=== PATIENT | female | born 1990 | race Caucasian/White ===

== ENCOUNTER 2017-02-22 08:39 | Outpatient (CLI) | payer BC, MEDICAID ==
[2017-02-22 14:08] LABS: BASOPHILS % (AUTO) 0.4 %; EOSINOPHILS # (AUTO) 0.2 10^3/uL (0.0-0.7); EOSINOPHILS % (AUTO) 4.1 %; HCT - HEMATOCRIT 38.2 % (37.0-47.0); HGB - HEMOGLOBIN 13.1 g/dL (12.0-16.0); LYMPHOCYTES # (AUTO) 1.5 10^3/uL (1.5-3.5); LYMPHOCYTES % (AUTO) 33.2 %; MEAN CORPUSCULAR HEMOGLOBIN 29.1 pg (27.0-31.0); MEAN CORPUSCULAR HGB CONC 34.2 g/dL (32.0-36.0); MEAN CORPUSCULAR VOLUME 85.1 fL (81.0-99.0); MEAN PLATELET VOLUME 8.6 fL (7.9-10.8); MONOCYTES # (AUTO) 0.5 10^3/uL (0.0-1.0); MONOCYTES % (AUTO) 10.8 %; NEUTROPHILS # (AUTO) 2.4 10^3/uL (1.5-6.6); NEUTROPHILS % (AUTO) 51.5 %; RED BLOOD COUNT 4.49 10^6/uL (4.20-5.40); RED CELL DISTRIBUTION WIDTH 13.1 % (12.0-15.0); UNCORRECTED WHITE BLOOD COUNT 4.6 x10^3/uL; WHITE BLOOD COUNT 4.6 x10^3/uL (4.8-10.8)
[2017-02-22 14:22] LABS: ALBUMIN/GLOBULIN RATIO 1.4 (1.0-2.2); BILIRUBIN,TOTAL 0.9 mg/dL (0.2-1.0); BUN - BLOOD UREA NITROGEN 10 mg/dL (6-20); CALCIUM 8.9 mg/dL (8.5-10.3); CARBON DIOXIDE - CO2 26 mmol/L (21-32); CHLORIDE 109 mmol/L (101-111); CHOL/HDL RATIO 2.7 (<4.4); CHOLESTEROL 128 mg/dL; CREATININE 0.7 mg/dL (0.4-1.0); GFR - MDRD 103 (>89); GLUCOSE 81 mg/dL (70-100); HDL CHOLESTEROL 47 mg/dL; POTASSIUM 3.7 mmol/L (3.5-5.0); SODIUM 141 mmol/L (135-145); TOTAL PROTEIN 7.3 g/dL (6.7-8.2); TRIGLYCERIDES 39 mg/dL
[2017-02-22 14:43] LABS: LDL CHOLESTEROL,DIRECT 69 mg/dL
== END 2017-02-22 08:40 | disposition home or self-care (01) ==
LOC: LAB.N 08:39
PROVIDERS: ATTEND Family Medicine
DX: Z00.00 Encounter for general adult medical examination without abnormal findings (principal)
CPT/HCPCS: 36415; 80053; 80061; 84443; 85025

== ENCOUNTER 2017-11-02 08:00 | Outpatient (CLI) | payer BC, MEDICAID | END 2017-11-02 08:01 | disposition home or self-care (01) | LOC: LAB.N 08:00 | PROVIDERS: ATTEND Family Medicine | DX: R19.7 Diarrhea, unspecified (principal) | CPT/HCPCS: 83630; 87045; 87046; 87493 ==

== ENCOUNTER 2018-09-10 08:00 | Outpatient (CLI) | payer BC, MEDICAID | END 2018-09-10 23:59 | disposition home or self-care (01) | LOC: LAB.R 08:00 | PROVIDERS: ATTEND Registered Nurse | DX: R10.2 Pelvic and perineal pain (principal) | CPT/HCPCS: 87086; 87491; 87591 ==

== ENCOUNTER 2020-08-14 16:14 | Emergency (ER) | payer MEDICAID ==
[2020-08-14 16:54] LABS: BASOPHILS % (AUTO) 0.2 %; EOSINOPHILS # (AUTO) 0.2 10^3/uL (0.0-0.7); EOSINOPHILS % (AUTO) 3.2 %; HGB - HEMOGLOBIN 12.9 g/dL (12.0-16.0); LYMPHOCYTES # (AUTO) 2.4 10^3/uL (1.5-3.5); LYMPHOCYTES % (AUTO) 39.1 %; MEAN CORPUSCULAR HEMOGLOBIN 28.7 pg (27.0-31.0); MEAN CORPUSCULAR VOLUME 87.1 fL (81.0-99.0); MEAN PLATELET VOLUME 8.8 fL (7.9-10.8); MONOCYTES # (AUTO) 0.6 10^3/uL (0.0-1.0); MONOCYTES % (AUTO) 9.4 %; NEUTROPHILS % (AUTO) 47.8 %; PLT - PLATELET COUNT 280 10^3/uL (130-450); RED BLOOD COUNT 4.49 10^6/uL (4.20-5.40); RED CELL DISTRIBUTION WIDTH 12.2 % (12.0-15.0); WHITE BLOOD COUNT 6.2 x10^3/uL (4.8-10.8)
[2020-08-14 17:05] LABS: ALBUMIN 4.5 g/dL (3.2-5.5); ALBUMIN/GLOBULIN RATIO 1.3 (1.0-2.2); BILIRUBIN,TOTAL 0.5 mg/dL (0.2-1.0); CALCIUM 9.1 mg/dL (8.5-10.3); CREATININE 0.9 mg/dL (0.4-1.0)
[2020-08-14] MEDS ORDERED: IBUPROFEN 800 MG TABLET PO STA (18:48)
--- NOTE | 2020-08-14 20:09 | Ultrasound Report ---
PROCEDURE: Pelvic w/Transvag+Doppler Comp INDICATIONS: pelvic pain, B, h/o ovarian cysts TECHNIQUE: Real-time scanning was performed of the pelvic organs, with image documentation. Additional endovagi nal scanning was necessary due to incomplete visualization of the adnexal and endometrial structures by transabdominal scanning. COMPARISON: Pelvic ultrasound 05/06/2014 FINDINGS: Transabdominal scanning: Limited scanning through the kidneys shows no hydronephrosis. Endovaginal scanning: Uterus: Uterus is normal in size at 7.7 x 3.5 x 4.9 cm. The endometrium measures 2 mm in combined t hickness. An intrauterine device is seen in expected position within the endometrial canal. Ovaries: The right ovary measures 3.7 x 2.9 x 3.4 cm. The left ovary measures 3.0 x 1.0 x 1.3 cm. A complex cystic lesion is seen in the right ovary measuring 2.5 x 1.7 x 2.6 cm with lacelike internal echoes and no central vascularity, most likely representing hemorrhagic cyst. A trace amount of right adnexal fluid is present. IMPRESSION: 1. Complex 2.6 cm right ovarian cyst without central vascularity has the imaging features of a proba ble hemorrhagic cyst. Repeat ultrasound may be obtained in 6-12 weeks for further evaluation. 2. Intrauterine device in expected position within the endometrial canal. Reviewed by: Roel Thomas MD on 08/14/2020 8:08 PM PST Approved by: Roel Thomas MD on 08/14/2020 8:08 PM PST Station ID: [id number]
--- NOTE | 2020-08-14 20:12 | ED Physician Documentation ---
PD HPI ABD PAIN - Stated complaint Stated Complaint: ABD PAIN - Chief complaint Chief Complaint: Abd Pain - History obtained from History obtained from: Patient - History of Present Illness Timing - onset: Today (1) Timing - duration: Days (1) Timing - details: Gradual onset Pain level max: 8 Pain level now: 6 Quality: Aching, Pain Location: Other (R pelvic) Improved by: Laying still Worsened by: Moving Associated symptoms: No: Fever, Nausea, Vomiting, Hematemesis, Diarrhea, Constipation Similar symptoms before: Diagnosis (Patient states that this feels similar to her prior ovarian cysts) Review of Systems Constitutional: denies: Fever, Chills Respiratory: denies: Cough GI: denies: Nausea, Vomiting, Diarrhea : reports: Control (IUD). 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 - Past Surgical History Past Surgical History: Yes HEENT: Myringotomy (tubes), Tonsil/Adenoidectomy - Present Medications Home Medications: Ambulatory Orders Medication Instructions Recorded Confirmed Cholecalciferol (Vitamin D3) 0 unit PO DAILY 01/14/14 01/14/14 [Vitamin D] HYDROcod/ACETAM 5/325 [Vicodin 1 - 2 ea PO Q6H PRN #10 tablet 01/14/14 5/325] Ibuprofen [Motrin] 800 mg PO Q8H PRN #30 tablet 01/14/14 Cephalexin [Keflex] 500 mg PO Q6H 7 Days capsule 06/04/16 Phenazopyridine HCl [Pyridium] 200 mg PO TID PRN #6 tablet 06/04/16 Ibuprofen [Motrin] 800 mg PO Q8H PRN #30 tablet 08/14/20 - Allergies Allergies/Adverse Reactions: Allergies Allergy/AdvReac Type Severity Reaction Status Date / Time No Known Drug Allergies Allergy Verified 08/14/20 16:36 - Social History Does the pt smoke?: No Smoking Status: Never smoker Does the pt drink ETOH?: No Does the pt have substance abuse?: No - POLST Patient has POLST: No PD ED PE NORMAL - Vitals Vital signs reviewed: Yes - General General: Alert and oriented X 3, No acute distress, Well developed/nourished - HEENT HEENT: Moist mucous membranes - Neck Neck: Supple, no meningeal sign - Cardiac Cardiac: RRR - Respiratory Respiratory: No respiratory distress, Clear bilaterally - Abdomen Abdomen: Soft, Non distended, Other (tender to palpation right low pelvic. No tenderness over the remainder of the abdomen. No peritoneal signs.) - Derm Derm: Warm and dry - Extremities Extremities: No edema, No calf tenderness / cord - Neuro Neuro: Alert and oriented X 3 - Psych Psych: Normal mood, Normal affect Results - Vitals Vitals: Vital Signs - 24 hr 08/14/20 08/14/20 16:30 20:20 Temperature 36.4 C L 36.4 C L Heart Rate 90 81 Respiratory 18 19 Rate Blood Pressure 140/70 H 138/71 H O2 Saturation 99 100 Oxygen O2 Source Room air - Labs Labs: Laboratory Tests 08/14/20 08/14/20 16:50 16:50 WBC 6.2 RBC 4.49 Hgb 12.9 Hct 39.1 MCV 87.1 MCH 28.7 MCHC 33.0 RDW 12.2 Plt Count 280 MPV 8.8 Neut # (Auto) 3.0 Lymph # (Auto) 2.4 Brown # (Auto) 0.6 Eos # (Auto) 0.2 Baso # (Auto) 0.0 Absolute Nucleated RBC 0.00 Nucleated RBC % 0.0 Sodium 138 Potassium 3.9 Chloride 104 Carbon Dioxide 25 Anion Gap 9.0 BUN 12 Creatinine 0.9 Estimated GFR (MDRD) 75 L Glucose 95 Calcium 9.1 Total Bilirubin 0.5 AST 20 ALT 22 Alkaline Phosphatase 100 Total Protein 8.0 Albumin 4.5 Globulin 3.5 Albumin/Globulin Ratio 1.3 Lipase 35 - Rads (name of study) pelvic US Radiology: Prelim report reviewed, EMP read contemporaneously, See rad report PD MEDICAL DECISION MAKING - ED course Complexity details: reviewed results, re-evaluated patient, considered differential, d/w patient ED course: 30-year-old female with a 2.6 cm right ovarian cyst, likely hemorrhagic cyst. Pain well controlled with Motrin. No evidence of torsion. Patient is well- appearing, nontoxic. Afebrile. We will have her follow-up with gynecology and her doctor for further care. Patient counseled regarding signs and symptoms for which I believe and urgent re-evaluation would be necessary. Patient with good understanding of and agreement to plan and is comfortable going home at this time This document was made in part using voice recognition software. While efforts are made to proofread this document, sound alike and grammatical errors may occur. 1. Complex 2.6 cm right ovarian cyst without central vascularity has the imaging features of a probable hemorrhagic cyst. Repeat ultrasound may be obtained in 6-12 weeks for further evaluation. 2. Intrauterine device in expected position within the endometrial canal. Departure - Departure Disposition: 01 Home, Self Care Clinical Impression: Hemorrhagic cyst of right ovary Condition: Good Instructions: ED Cyst Ovarian Follow-Up: your,doctor in 1 week [Other] Prescriptions: Ibuprofen [Motrin] 800 mg PO Q8H PRN #30 tablet PRN Reason: PAIN &/OR FEVER Comments: You do appear to have a hemorrhagic ovarian cyst. This should improve over the next few days. Return if you worsen. Discharge Date/Time: 08/14/20 20:21
[2020-08-14 20:21] VITALS: BP 138/71
== END 2020-08-14 20:21 | disposition home or self-care (01) ==
LOC: ED 16:14
DX: N83.201 Unspecified ovarian cyst, right side (principal); Z97.5 Presence of (intrauterine) contraceptive device
CPT/HCPCS: 36415; 76830; 76856; 80053; 83690; 85025; 93975; 99284; A9270

== ENCOUNTER 2021-03-15 16:53 | Outpatient (CLI) | payer MEDICAID | END 2021-03-15 16:54 | disposition home or self-care (01) | LOC: COV 16:53 | PROVIDERS: ATTEND Surgery | DX: Z01.812 Encounter for preprocedural laboratory examination (principal); K43.9 Ventral hernia without obstruction or gangrene; K42.9 Umbilical hernia without obstruction or gangrene; Z20.822 Contact with and (suspected) exposure to COVID-19 ==

== ENCOUNTER 2021-03-18 06:09 | Day surgery (SDC) | payer MEDICAID ==
[2021-03-18] MEDS ORDERED: LACTATED RINGERS 1,000 ML IV ONE ×2 (06:14→08:51)
[2021-03-18] MEDS ORDERED: ceFAZolin 2 GM/50 ML 2 GM/50 ML BAG IV ONE (06:28)
[2021-03-18 06:30] LABS: HCG UR QUAL NEGATIVE
[2021-03-18] MEDS ORDERED: ceFAZolin 1 GM VIAL ONE (07:08)
[2021-03-18] MEDS ORDERED: LIDOCAINE MPF 2%-EPI 1:200000 20 ML VIAL ONE (07:09)
[2021-03-18] MEDS ORDERED: SODIUM CHLORIDE 0.9% 10 ML VIAL IVP ONE (07:09)
[2021-03-18] MEDS ORDERED: MIDAZOLAM 2 MG/2 ML VIAL ONE (07:13)
[2021-03-18] MEDS ORDERED: LIDOCAINE-MPF 2% 5 ML VIAL ONE (07:13)
[2021-03-18] MEDS ORDERED: PROPOFOL 200 MG/20 ML VIAL IVP ONE (07:13)
[2021-03-18] MEDS ORDERED: ROCURONIUM 50 MG/5 ML VIAL ONE (07:13)
[2021-03-18] MEDS ORDERED: ONDANSETRON 4 MG/2 ML VIAL ONE (07:13)
[2021-03-18] MEDS ORDERED: fentaNYL 100 MCG/2 ML VIAL ONE ×2 (07:13→08:59)
[2021-03-18] MEDS ORDERED: DEXAMETHASONE 4 MG/ML VIAL ONE (07:13)
--- NOTE | 2021-03-18 07:19 | ANESTHESIA ---
Pre-Anesthesia VS, & Labs - Diagnosis ventral hernia, umbilical hernia - Procedure laparoscopic ventral hernia repair Vital Signs: Temp Pulse Resp BP Pulse Ox 36.5 C 111 H 16 138/95 H 97 03/18/21 06:20 03/18/21 06:20 03/18/21 06:20 03/18/21 06:20 03/18/21 06:20 Height: 5 ft 4 in Weight (kg): 99 kg Body Mass Index: 37.4 BMI Classification: Obese - NPO >8 hours - Is Patient ?: No Home Medications and Allergies Home Medications: Ambulatory Orders Prazosin [Minipress] 1 mg PO DAILY 03/15/21 Quetiapine Fumarate [Seroquel Xr] 300 mg PO DAILY 03/15/21 buPROPion HCL [Bupropion HCl Sr] 150 mg PO DAILY 03/15/21 Prazosin [Minipress] 1 mg PO DAILY 03/15/21 Quetiapine Fumarate [Seroquel Xr] 300 mg PO DAILY 03/15/21 buPROPion HCL [Bupropion HCl Sr] 150 mg PO DAILY 03/15/21 Allergies/Adverse Reactions: Allergies Allergy/AdvReac Type Severity Reaction Status Date / Time No Known Drug Allergies Allergy Verified 08/14/20 16:36 Anes History & Medical History - Anesthetic History Anesthesia Complications: reports: No previous complications - Medical History Cardiovascular: reports: None Pulmonary: reports: None Gastrointestinal: reports: Other Urinary: reports: None Neuro: reports: Other (learning disability) Musculoskeletal: reports: None Endocrine/Autoimmune: reports: None Smoking Status: Never smoker Psychosocial: reports: Anxiety History of Cancer?: No - Surgical History Eyes Ears Nose Throat (EENT): reports: Myringotomy (tubes), Tonsil/Adenoidectomy Exam General: Alert, Oriented x3 Dental: WNL Mouth Opening: Greater than 4 Fingerbreadths Neck Mobility: Normal Mallampati classification: III Thyromental Distance: greater than 6 cm Respiratory: Lungs clear Cardiovascular: Regular rate Plan Anesthesia Type: General Consent for Procedure(s) Verified and Reviewed: Yes Code Status: Attempt Resuscitation ASA classification: 2-Mild systemic disease Is this case an emergency?: No
[2021-03-18] MEDS ORDERED: METOCLOPRAMIDE 10 MG/2 ML VIAL IVP PRN (07:20)
[2021-03-18] MEDS ORDERED: ONDANSETRON 4 MG/2 ML VIAL IVP PRN ×3 (07:20→08:44)
[2021-03-18] MEDS ORDERED: fentaNYL 100 MCG/2 ML VIAL IVP PRN (07:20)
[2021-03-18] MEDS ORDERED: MORPHINE 2 MG/ML CARPUJECT IVP PRN (07:20)
[2021-03-18] MEDS ORDERED: NALOXONE 0.4 MG/ML VIAL IVP PRN (07:20)
[2021-03-18] MEDS ORDERED: ATROPINE ABBOJECT 1 MG/10 ML SYRINGE IVP PRN (07:20)
[2021-03-18] MEDS ORDERED: ePHEDrine 50 MG/ML VIAL IVP PRN (07:20)
[2021-03-18] MEDS ORDERED: HYDROmorphone 0.5 MG/0.5 ML SYRINGE IVP PRN ×2 (07:20→08:44)
[2021-03-18] MEDS ORDERED: BUPIVACAINE 0.5% PF 30 ML VIAL INFIL ONE (07:57)
[2021-03-18] MEDS ORDERED: LIDOCAINE 2%-EPI 1:100000 20 ML MDV SUBQ ONE (07:57)
[2021-03-18] MEDS ORDERED: LACTATED RINGERS 1,000 ML IV SCH ×2 (08:00→09:00)
[2021-03-18] MEDS ORDERED: SUGAMMADEX 200 MG/2 ML VIAL IVP ONE (08:27)
[2021-03-18] MEDS ORDERED: oxyCODONE 5 MG TABLET PO PRN (08:44)
[2021-03-18] MEDS ORDERED: KETOROLAC 30 MG/ML VIAL IVP SCH (09:00)
[2021-03-18] MEDS ORDERED: metroNIDAZOLE 500 MG/100 ML 500 MG/100 ML BAG IV SCH (09:00)
[2021-03-18] MEDS ORDERED: polyethylene glycoL 3350 17 GM PACKET PO SCH (09:00)
[2021-03-18] MEDS ORDERED: DOCUSATE SODIUM 100 MG CAPSULE PO SCH (09:00)
--- NOTE | 2021-03-18 09:09 | OPERATIVE REPORT ---
Operative Report - General Procedure Date: 03/18/21 Planned Procedure: 1. Diagnostic laparoscopy 2. Laparoscopic assisted ventral hernia repair 3. Laparoscopic assisted intraperitoneal onlay mesh a AKA IPOM Pre-Op Diagnosis: Symptomatic ventral hernia; chronically incarcerated umbilical hernia Procedure Performed: 1. Diagnostic laparoscopy 2. Laparoscopic assisted ventral hernia repair 3. Laparoscopic assisted intraperitoneal onlay mesh a AKA IPOM Post Op Diagnosis: Same; successful IPOM - Procedure Note Primary Surgeon: Landon Secondary Surgeon: Shanelle Anesthesia Provider: Ana María Anesthesia Technique: General ET tube, Local Pathology: NONE Estimated Blood Loss (mL): 10 Indications: See EMR Findings: See below Complications: NONE - Other Other Information/Narrative: Indications: 30-year-old female who presents with a symptomatic ventral/umbilical hernia. Laparoscopic assisted repair was indicated, and because of the patient's ongoing symptoms and reports of chronic incarceration. Description of procedure: Patient was taken to the operating room placed supine on the operating table. Informed consent was already obtained. Patient was induced for general endotracheal anesthesia. Patient was offloaded and padded. The patient was placed supine with arms tucked at the sides. After obtaining adequate anesthesia, the patient's abdomen was prepped and draped in standard sterile fashion. Timeout was called and agreed to by all in the room. Perioperative antibiotics were given and dosed within 1 hour of incision. A plan access point was made and a circumlinear incision through the umbilicus. An incision was made sharply. Skin and subcutaneous tissues divided sharply given the large incarcerated hernia that the patient had. This was clearly omental and periumbilical fat. This was carefully reduced into the abdomen without any concerns for ischemia and/or necrosis. Thereafter a large defect was noted within the fascia. This would not be candidate to address primarily with high risk of recurrence and failure. The abdominal cavity was entered without incident. Abdomen was placed for Odonnell trocar and insufflated to 15 mmHg. There were the following notable findings: 1. The omentum was evaluated with no evidence of necrosis and/or ischemia. There was no significant anterior abdominal adhesions for which adhesiolysis was indicated 2. We are able to place 3 additional trochars 5 mm in the right upper quadrant left upper quadrant and left lower quadrant to assist with laparoscopic placement of the intraperitoneal onlay mesh. 3. No overt occult pathology appreciated at this time liver was within normal l imits. With the abdomen expected and appropriate for a intraperitoneal onlay mesh AKA IPOM intervention laparoscopic assisted we proceeded to desufflate the abdomen and placed a [address] mesh with echo to positioning system into the abdomen. A large piece of mesh (ventral light ST mesh 11 cm with echo to positioning system as listed elsewhere) was rolled longitudinally into a compact cylinder and passed through the Odonnell trocar. The cylinder was placed along the inferior aspect of the working space and unrolled into place to completely cover the defect. The scaffolding suture was clamped through the large umbilical defect. We proceeded to close the umbilical fascial defect with 3 [id number] of 0 Vicryl without any complication. We thereafter insufflated the abdomen through one of the accessory 5 mm trochars. Thereafter using a absorbable laparoscopic tacker and after approximating to the anterior abdominal wall the ventral light ST mesh which had been appropriately oriented with a Seprafilm impregnated portion facing the intra-abdominal contents, we affixed the mesh without any complication to the anterior abdominal wall. This was evaluated circumferentially without any concern or or complication. We upsized the right upper quadrant trocar to accommodate removal of the scaffold of the positioning system without any complication. Thereafter we reevaluated the mesh and placed additional absorbable tackers to assure good approximation. We proceeded to remove the scaffold again without any complication and the right upper quadrant Odonnell trocar was removed along with it there was no incident or event. We closed this port with a Tony-Nathan suture passer. At this time the abdomen was reevaluated omentum was laid atop the small bowel which was without any inadvertent injury or unintended hollow viscus trauma. Anterior abdominal wall was hemostatic. We proceeded to desufflate through the left lateral 5 mm trochars. These were removed without complication. We performed umbilical plasty at the level of the umbilicus. The trocars were removed, and the pneumoperitoneum evacuated. The trocar incisions were closed using skin roxana and dry dressing applied. Local anesthetic was placed without any complication across all trocar sites. The patient tolerated the procedure well and was taken to the postanesthesia care unit in stable condition. I was present for the entirety of this operative intervention. All counts of sponges needles instruments were correct inclusion of this operative case. Please note that voice recognition software was used to transcribe this note and inadvertent errors might persist in spite of review and editing. I am obliged to you for your attention. I am thankful to you for allowing me to participate with you in this care of this patient.
[2021-03-18] MEDS ORDERED: HYDROmorphone 1 MG/ML CARPUJECT ONE (09:33)
[2021-03-18] MEDS ORDERED: KETOROLAC 15 MG/ML VIAL ONE (09:33)
--- NOTE | 2021-03-18 09:45 | ANESTHESIA POST OP EVALUATION ---
Anesthesia Post Eval - Post Anesthesia Eval Vitals: Last Vital Signs Temp 36.8 C 03/18/21 09:44 Pulse 100 03/18/21 09:44 Resp 12 03/18/21 09:44 BP 143/93 H 03/18/21 09:25 Pulse Ox 93 03/18/21 09:44 CV Function Including HR & BP: Stable Pain Control: Satisfactory Nausea & Vomiting: Negative Mental Status: Baseline Respiratory Status: Airway Patent Hydration Status: Satisfactory Anesthesia Complications: None
[2021-03-18 09:47] VITALS: BP 138/90
[2021-03-18] MEDS ORDERED: methocarbamoL 500 MG TABLET PO SCH (12:00)
== END 2021-03-18 06:10 | disposition home or self-care (01) ==
LOC: SDS 06:09
PROVIDERS: ATTEND Surgery
DX: K43.6 Other and unspecified ventral hernia with obstruction, without gangrene (principal); K42.0 Umbilical hernia with obstruction, without gangrene; F41.0 Panic disorder [episodic paroxysmal anxiety]; F40.10 Social phobia, unspecified; F34.1 Dysthymic disorder; F81.9 Developmental disorder of scholastic skills, unspecified; R47.9 Unspecified speech disturbances; Z68.35 Body mass index [BMI] 35.0-35.9, adult; E66.9 Obesity, unspecified
CPT/HCPCS: 49653; 81025; C1781; J0690; J1170; J7120

== ENCOUNTER 2021-05-27 08:00 | Outpatient (CLI) | payer MEDICAID | END 2021-05-27 23:59 | disposition home or self-care (01) | LOC: LAB.N 08:00 | PROVIDERS: ATTEND Physician Assistant Medical | DX: B34.9 Viral infection, unspecified (principal); Z20.822 Contact with and (suspected) exposure to COVID-19 ==

== ENCOUNTER 2023-10-25 12:11 | Outpatient (CLI) | payer MEDICAID ==
[2023-10-25 12:36] LABS: HGB - HEMOGLOBIN 13.9 g/dL (12.0-16.0); MEAN CORPUSCULAR HEMOGLOBIN 30.1 pg (27.0-31.0); MEAN CORPUSCULAR HGB CONC 33.1 g/dL (32.0-36.0); MEAN CORPUSCULAR VOLUME 90.9 fL (81.0-99.0); MEAN PLATELET VOLUME 9.1 fL (7.9-10.8); RED BLOOD COUNT 4.62 10^6/uL (4.20-5.40); RED CELL DISTRIBUTION WIDTH 12.5 % (12.0-15.0); WHITE BLOOD COUNT 5.5 x10^3/uL (4.8-10.8)
== END 2023-10-25 12:12 | disposition home or self-care (01) ==
LOC: LAB 12:11
PROVIDERS: ATTEND Nurse Practitioner
DX: R58 Hemorrhage, not elsewhere classified (principal)
CPT/HCPCS: 36415; 82728; 85027